=== PATIENT | female | born 1960 | race Caucasian/White ===

== ENCOUNTER → 2016-12-28 | Outpatient (CLI) | payer BC | LOC: RAD 09:49 | PROVIDERS: ATTEND Family Medicine | DX: N64.4 Mastodynia (principal) | CPT/HCPCS: 76642; G0204 ==

== ENCOUNTER → 2017-01-06 | Outpatient (CLI) | payer BC ==
[2017-01-06 08:54] LABS: BASOPHILS % (AUTO) 1 % (0-2); EOSINOPHILS # (AUTO) 0.2 10^3uL; EOSINOPHILS % (AUTO) 3 % (0-4); LYMPHOCYTES # (AUTO) 1.8 X10^3; MEAN CORPUSCULAR HEMOGLOBIN 29.7 PG (26.0-34.0); MEAN CORPUSCULAR HGB CONC 33.3 g/dL (31.0-37.0); MEAN CORPUSCULAR VOLUME 89 FL (80-100); MEAN PLATELET VOLUME 9.8 FL (6.0-9.5); MONOCYTES # (AUTO) 0.7 X10^3; MONOCYTES % (AUTO) 12 % (3-11); NEUTROPHILS # (AUTO) 2.8 X10^3; NEUTROPHILS % (AUTO) 50 % (51-67); PLATELET COUNT 267 10^3uL (150-450); WHITE BLOOD COUNT 5.52 10^3uL (4.0-11.0)
[2017-01-06 09:03] LABS: BILIRUBIN,URINE Negative (Negative); CLARITY,URINE Clear; COLOR,URINE Yellow; GLUCOSE, URINE (UA) Negative (Negative); LEUKOCYTE ESTERASE ,URINE 1+ (Negative); UROBILINOGEN,URINE 0.2 mg/dL (0.2-1.0)
[2017-01-06 09:15] LABS: ALBUMIN 3.8 g/dL (3.4-5.0); ANION GAP 12.2 MEQ/L (3-15); TOTAL PROTEIN 7.1 g/dL (6.4-8.5)
[2017-01-06 09:35] LABS: RBC,URINE None Seen /HPF; URINE CENTRIFUGED VOLUME 10 mL
[2017-01-06 09:36] LABS: AMORPHOUS SEDIMENT,UR 1+ /HPF
== END ==
LOC: LAB 08:41
PROVIDERS: ATTEND Family Medicine
DX: E78.1 Pure hyperglyceridemia (principal); R59.0 Localized enlarged lymph nodes; F32.0 Major depressive disorder, single episode, mild; M85.89 Other specified disorders of bone density and structure, multiple sites
CPT/HCPCS: 36415; 80053; 80061; 81003; 81015; 84443; 85025; 87088